=== PATIENT | female | born 1935 | race Caucasian/White ===

== ENCOUNTER 2016-08-06 17:43 | Inpatient (IN) | payer OTHER ==
[2016-08-06] MEDS ORDERED: NS 1,000 ML IV ONE (18:02)
--- NOTE | 2016-08-06 18:11 | PROVIDER DOCUMENTATION ---
HPI-Female /OB/Breast - General Chief Complaint: UTI Symptoms Stated Complaint: general weakness, recurrent UTI Time Seen by Provider: 08/06/16 17:49 Source: reports: patient Allergies/Adverse Reactions: Patient Allergies Allergy/AdvReac Type Severity Reaction Status Date / Time pregabalin [From Lyrica] Allergy Unknown Verified 08/06/16 18:58 Home Medications: Home Medication List Medication Instructions Recorded Confirmed Last Taken Type Levothyroxine [Synthroid] 100 microgm PO DAILY 12/02/15 08/06/16 08/06/16 07:00 History Insulin Glargine [Lantus] 23 unit SUBQ QHS 12/22/15 08/06/16 08/05/16 20:00 History Insulin Lispro [Humalog] 100 unit SQ DIRECTED 12/22/15 08/06/16 08/05/16 20: 00 History Omeprazole [Prilosec] 40 mg PO DAILY 12/22/15 08/06/16 08/06/16 08:00 History Hydrocodone/Acetaminophen [[place] 1 each PO BID 02/01/16 08/06/16 08/06/16 07:00 History 5-325 Tablet] Amlodipine [Norvasc] 5 mg PO DAILY #30 tablet 02/03/16 08/06/16 08/06/16 07:00 Rx Gabapentin 300 mg PO TID 08/06/16 08/06/16 08/06/16 12:00 History Lisinopril 10 mg PO DAILY 08/06/16 08/06/16 08/06/16 08:00 History Sulfamethoxazole/Trimethoprim 1 tab PO QAM 08/06/16 08/06/16 08/06/16 08:00 History [Bactrim Ds Tablet] Tamsulosin [Flomax] 0.4 mg PO QHS 08/06/16 08/06/16 08/05/16 20:00 History - History of Present Illness-Female /OB Nature of Presenting Problem: 81 Y/O F presents to ED with Female . Pt c/o of reoccurring UTI that began last week started taking Bactrim today . States UTI worsening hasn't been resolved, Pt states home care nurse stated Pt was pale and diaphoretic, with generalized pain. Pt is a hospice pt due to COPD, and also a full code Pt. During exam Pt is alert while talking but doses off during the exam. Does patient report she is ?: No Location of complaint: reports: generalized flank Radiation: reports: none Quality of Pain: reports: aching Severity in ED: reports: moderate Onset/Duration: reports: last week Timing: reports: still present, getting worse Context/Activities at Onset: reports: none Urinary Symptoms: reports: frequency Associated Symptoms: reports: diaphoresis, fever/chills. denies: diarrhea, dizziness, nausea Similar Symptoms Previously?: Yes Recently seen or treated by another doctor?: Yes Review of Systems - Adult - REVIEW OF SYSTEMS - ADULT Constitutional: reports: fever. denies: chills Eyes: reports: no symptoms reported Ears, Nose, Mouth & Throat: reports: no symptoms reported Cardiovascular: reports: no symptoms reported Respiratory: reports: no symptoms reported Gastrointestinal: reports: no symptoms reported Genitourinary: reports: frequency, frequent UTI's Musculoskeletal: reports: no symptoms reported Integumentary: reports: no symptoms reported Neurological: reports: no symptoms reported Psychiatric: reports: no symptoms reported Endocrine: reports: no symptoms reported Hematologic/Lymphatic: reports: no symptoms reported Allergic/Immunologic: reports: no symptoms reported All Other Systems: Reviewed and Negative Past History - Adult - PAST MEDICAL HISTORY-ADULT Review of Records: reports: Old Records Reviewed, Nursing Assessment Review, Medications Reviewed, Social history reviewed & non-contributory. Major Childhood Illnesses: reports: denies history Cardiovascular: reports: HTN Respiratory: reports: COPD Neurological: reports: dementia Endocrine/Immune: reports: anemia, Diabetes, thyroid disorder Other Conditions: reports: denies history - PRIOR SURGERIES/PROCEDURES Surgical/Procedure History: reports: hysterectomy - IMMUNIZATION STATUS Childhood Immunizations: See Nurse Assessment Flu Vaccine: See Nurse Assessment - FAMILY HISTORY Family History: reviewed, not pertinent - SOCIAL HISTORY Smoking: quit greater than 1 year Physical Exam-General - PHYSICAL EXAM-ADULT Initial Vital Signs Reviewed: Yes - CONSTITUTIONAL General Appearance: alert (but doses off during exqam.), no apparent distress. negative: appears well - EYES Eyes: PERRL/EOMI, pink conjunctivae, fundi clear, no AV nicking - HEAD, EARS, NOSE, MOUTH & THROAT HENMT: normocephalic/atraumatic, moist mucous membranes, normal ENT inspection, TMs normal, pharynx normal - NECK Neck: non-tender, full range of motion, supple, normal inspection - RESPIRATORY Respiratory: chest non-tender, lungs clear, normal breath sounds - CARDIOVASCULAR Cardiovascular: normal peripheral pulses, regular rate, rhythm - GASTROINTESTINAL (ABDOMEN) Abdominal Exam: normal bowel sounds, non tender, soft - LYMPHATIC Lymphatic: no adenopathy - MUSCULOSKELETAL Back Exam: normal inspection, no CVA tenderness, no vertebral tenderness Extremity: normal range of motion, non-tender - SKIN Integumentary: normal color, normal turgor, warm/dry - NEUROLOGIC Neurologic: associate vice president II-XII nml as tested, grossly normal - PSYCHIATRIC Psych/Mental Status: normal mood/affect, normal thought content, normal thought process, oriented x 3 Progress - PLAN OF CARE/RESULTS Progress/Plan/Lab Results: Laboratory Tests 08/06/16 08/06/16 08/06/16 18:31 18:31 18:31 WBC 8.88 RBC 3.41 L Hgb 10.1 L Hct 31.7 L MCV 93.0 MCH 29.6 MCHC 31.9 L RDW Std Deviation 14.0 Plt Count 242 MPV 10.6 H Immature Gran % (Auto) 0.5 Neut % (Auto) 65.5 Lymph % (Auto) 22.9 [place] % (Auto) 7.0 Eos % (Auto) 3.8 Baso % (Auto) 0.3 Immature Gran # (Auto) 0.04 Neut # (Auto) 5.82 Lymph # (Auto) 2.03 [place] # (Auto) 0.62 H Eos # (Auto) 0.34 Baso # (Auto) 0.03 Specimen Type Sample Site pH pCO2 pO2 HCO3 Base Excess Oxyhemoglobin ABG O2 Sat (Calculated) ABG O2 Saturation ABG Carboxyhemoglobin ABG Methemoglobin Vickey Test A-a O2 Difference Total Hemoglobin Lactate Blood Gas Modality FiO2 % Sodium 135 L Potassium 6.2 H* Chloride 101 Carbon Dioxide 21 L Anion Gap 13 BUN 49 H Creatinine 2.1 H Estimated GFR/1.73 m2 23 BUN/Creatinine Ratio 23 Glucose 126 H Calculated Osmolality 285 Calcium 8.8 Magnesium 1.7 Total Bilirubin 0.21 AST 21 ALT 18 Alkaline Phosphatase 66 Troponin T [id number]-[id number]-[id number] Pept Total Protein 7.2 Albumin 3.7 Globulin 3.5 Albumin/Globulin Ratio 1.1 Amylase 73 Lipase 17 Plasma Lactate 0.9 08/06/16 08/06/16 08/06/16 18:31 18:31 18:35 WBC RBC Hgb Hct MCV MCH MCHC RDW Std Deviation Plt Count MPV Immature Gran % (Auto) Neut % (Auto) Lymph % (Auto) [place]oul[place] % (Auto) Eos % (Auto) Baso % (Auto) Immature Gran # (Auto) Neut # (Auto) Lymph # (Auto) [place] # (Auto) Eos # (Auto) Baso # (Auto) Specimen Type ARTERIAL Sample Site R RADIAL pH 7.27 L pCO2 42 pO2 65 HCO3 19.2 L Base Excess -7.2 L Oxyhemoglobin 92.1 L ABG O2 Sat (Calculated) 12.5 L ABG O2 Saturation 94.9 L ABG Carboxyhemoglobin 1.20 ABG Methemoglobin 1.8 H Vickey Test YES A-a O2 Difference 32.0 Total Hemoglobin 9.6 L Lactate 0.70 Blood Gas Modality ROOM AIR FiO2 % 21.0 Sodium Potassium Chloride Carbon Dioxide Anion Gap BUN Creatinine Estimated GFR/1.73 m2 BUN/Creatinine Ratio Glucose Calculated Osmolality Calcium Magnesium Total Bilirubin AST ALT Alkaline Phosphatase Troponin T < 0.010 [id number] Pept 459 H Total Protein Albumin Globulin Albumin/Globulin Ratio Amylase Lipase Plasma Lactate Orders Category Date Time Status Saline Loc DIRECTED Care 08/06/16 18:02 Active NPO Diet 08/06/16 18:02 Active CHEST-PORTABLE [RAD] Stat Exams 08/06/16 18:02 Taken ABG [RESP] Routine Lab 08/06/16 18:35 Completed AMYLASE [CHEM] Stat Lab 08/06/16 18:31 Completed BLOOD CULTURE [BLDCUL] Stat Lab 08/06/16 18:25 Results CBC WITH ELECTRONIC DIFF [HEME] Stat Lab 08/06/16 18:31 Completed COMPREHENSIVE METABOLIC PANEL [CHEM] Stat Lab 08/06/16 18:31 Completed LACTATE, PLASMA [CHEM] Stat Lab 08/06/16 18:31 Completed LIPASE [CHEM] Stat Lab 08/06/16 18:31 Completed MAGNESIUM [CHEM] Stat Lab 08/06/16 18:31 Completed PRO B-NATRIURETIC PEPTIDE Stat Lab 08/06/16 18:31 Completed TROPONIN T Stat Lab 08/06/16 18:31 Completed URINALYSIS W/POSS RFLX CULT [URINALYSIS] Stat Lab 08/06/16 18:02 Uncollected 0.9% Sodium Chloride Inj [Ns] 1,000 ml Med 08/06/16 18:02 Active IV 250 mls/hr Calcium Gluconate 1 gm Med 08/06/16 19:38 Active 0.9% Sodium Chloride Inj [Ns] 50 ml IV NOW Dextrose 50% Syringe [D50w Syringe] Med 08/06/16 19:38 Discontinued 50 ml IV NOW ONE Insulin Human Regular [Humulin R] Med 08/06/16 19:38 Discontinued 8 unit IV NOW ONE Sodium Polystyrene [Kayexalate] Med 08/06/16 19:38 Discontinued 30 gm PO NOW ONE EKG [EKG] Stat Ther 08/06/16 19:38 Ordered Vital Signs - 24 hr 08/06/16 08/06/16 18:10 19:42 Temperature 100.2 F H Pulse Rate 70 68 Respiratory 16 18 Rate Blood Pressure 160/36 164/51 O2 Sat by Pulse 98 96 Oximetry - EKG 1 Time of EKG reading by physician:: 19:48 EKG Read and Signed by:: Benigno Barnett EKG Interpretation (*Must complete 3 of following elements*): Abnormal Rate: 67 Rhythm: NSR QRS: LVH Comments: Abnormal ECG - XRAY 1 XRAY Study: Chest XRAY Interpretation: COPD changes, Non acute infilitrates - CONSULTS/PCP/HOSPITALIST Notification #1 *Consult/PCP/Hospitalist*: Time Discussed: 19:59 Reason/Comments: Admittance Consult Disposition: Admit (Admit Accepted) - CHANGE OF SHIFT REPORT (ED Provider) Report Given and Care Transferred to:: Time of Transfer: 19:41 Items Pending: Labs, Procedure, Physician Consult/Arrival Departure - Departure Time of Disposition Order: 19:48 DIAGNOSIS: Dehydration, Hypokalemia Fever Qualifiers: Fever type: unspecified Qualified Code(s): R50.9 - Fever, unspecified Disposition: ADMITTED INPATIENT 09 Certified Medical Emergency: Emergent Condition: Stable Additional Instructions: ED Follow Up Instructions: You have been treated by a care provider in the Emergency Department. These instructions are being provided to you so you can have an understanding of how to care for yourself upon discharge. Upon discharge from the Emergency Department, you are responsible for making arrangements for follow-up care by a physician of your choice. Take all prescribed medications as directed. Return to the Emergency Department immediately for any new or worsening symptoms. You may call the Physician Referral phone number at [phone] to obtain a list of Physicians who are taking new patients. Attestation - Scribe Verification/Attestation Scribe:: Misty Matthews Acting as Scribe for:: Hansel Garcia Scribe documention review:: This chart was documented by a scribe and accurately reflects the service the provider performed and the decisions made by the provider.
[2016-08-06 18:42] LABS: ALLEN TEST YES; BE -7.2 mmoll (-3.0-3.0); BLOOD TYPE ARTERIAL; DRAW SITE R RADIAL; METHB 1.8 % (0.0-1.5); O2(CT) 12.5 mL/dL (15.0-23.0); PCO2(98.6) 42 mmHg (35-45); PO2(98.6) 65 mmHg (60-100); SAMPLE BLOOD; SAO2 94.9 % (95.0-100.0); THB 9.6 g/dL (11.5-17.4); pH(98.6) 7.27 (7.35-7.45)
[2016-08-06 18:42] LABS: MANUAL DIFF NEEDED? NO
[2016-08-06 18:43] LABS: MODALITY ROOM AIR
[2016-08-06 18:46] LABS: BASO% 0.3 % (0.0-0.8); EOS# 0.34 X1000 (0.0-0.7); EOS% 3.8 % (0.0-10.0); HEMATOCRIT 31.7 % (37.0-47.0); HEMOGLOBIN 10.1 g/dL (12.0-16.0); IMM GRAN# 0.04 X1000 (0.0-0.04); IMM GRAN% 0.5 % (0.0-0.5); LYMPH# 2.03 X1000 (1.2-3.4); LYMPH% 22.9 % (20.5-51.1); MCH 29.6 PG (27-31); MCHC 31.9 g/dL (33-37); MONO# 0.62 X1000 (0.11-0.59); MPV 10.6 FL (7.4-10.4); NEUT% 65.5 % (42.2-75.2); PLT 242 X1000 (130-400); RBC 3.41 XMIL (4.2-5.4)
[2016-08-06 19:13] LABS: ALBUMIN 3.7 g/dL (3.5-5.0); CALCIUM 8.8 mg/dL (8.8-10.2); MAGNESIUM 1.7 mg/dL (1.5-2.7); POTASSIUM 6.2 mmol/L (3.5-5.1); TOTAL BILIRUBIN 0.21 mg/dL (0.20-1.00); TOTAL PROTEIN 7.2 g/dL (6.3-8.3)
[2016-08-06] MEDS ORDERED: HUMULIN R IV ONE ×2 (19:38→23:55)
[2016-08-06] MEDS ORDERED: CALCIUM GLUCONATE 1 GM in NS 50 ML IV ONE (19:38)
[2016-08-06] MEDS ORDERED: KAYEXALATE PO ONE (19:38)
[2016-08-06] MEDS ORDERED: D50W SYRINGE IV ONE ×2 (19:38→23:55)
[2016-08-06 20:17] LABS: URINE MICRO REVIEW NEEDED? NO; URINE SOURCE CATH
[2016-08-06 20:25] LABS: BILIRUBIN URINE NEGATIVE (NEGATIVE); BLOOD URINE SMALL (NEGATIVE); COLOR ORANGE; GLUCOSE URINE NEGATIVE (NEGATIVE); LEUKOCYTES URINE LARGE (NEGATIVE); NITRITE URINE NEGATIVE (NEGATIVE); PH URINE 5.5; PROTEIN URINE 50 mg/dL (NEGATIVE); TURBIDITY URINE HAZY (CLEAR); UROBILINOGEN URINE NORMAL (NORMAL)
[2016-08-06 20:26] LABS: UR EPITHELIAL CELLS <10 /HPF (<10); URINE BACTERIA 4+ /HPF; URINE CULTURE NEEDED? YES; URINE RBC <10 /HPF (<10); URINE WBC TNTC /HPF (<10)
[2016-08-06] MEDS ORDERED: ROCEPHIN 1 GM/NS 50 ML IV ONE (20:50)
[2016-08-06 21:33] LABS: UR CREAT RANDOM 47.3 mg/dL (11-20)
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
[2016-08-06] MEDS: HUMALOG SUBQ SCH (21:50)
[2016-08-06] MEDS ORDERED: ZOFRAN IV PRN (21:50)
[2016-08-06] MEDS ORDERED: TYLENOL PO PRN (21:50)
[2016-08-06] MEDS ORDERED: SODIUM BICARBONATE 8.4% 100 MEQ in D5W 1,000 ML IV SCH (21:50)
[2016-08-06] MEDS: HEPARIN SUBQ SCH (22:15)
[2016-08-06] MEDS: LANTUS SUBQ SCH (22:37)
[2016-08-06] MEDS ORDERED: TYLENOL PR ONE (23:00)
[2016-08-06] MEDS ORDERED: TYLENOL ONE (23:02)
[2016-08-06 23:30] LABS: CALCIUM 9.2 mg/dL (8.8-10.2)
--- NOTE | 2016-08-07 05:36 | EKG Report ---
Test Performed on : 08/06/2016 7:48:52 PM Test Reason : Elevated K level Blood Pressure : / mmHG Vent. Rate : 067 BPM Atrial Rate : 067 BPM P-R Int : 164 ms QRS Dur : 106 ms QT Int : 378 ms P-R-T Axes : 062 -29 063 degrees QTc Int : 399 ms Normal sinus rhythm. Possible Left atrial enlargement Left ventricular hypertrophy Cannot rule out Septal infarct , age undetermined Abnormal ECG When compared with ECG of 01-FEB-2016 10:13, Vent. rate has increased BY 27 BPM Nonspecific T wave abnormality now evident in Lateral leads Unconfirmed Result
[2016-08-07] MEDS: HUMALOG SUBQ SCH ×4 (06:40→21:17)
[2016-08-07 07:15] LABS: MANUAL DIFF NEEDED? NO
[2016-08-07 07:22] LABS: BASO% 0.3 % (0.0-0.8); EOS# 0.21 X1000 (0.0-0.7); EOS% 3.6 % (0.0-10.0); HEMATOCRIT 28.3 % (37.0-47.0); LYMPH% 24.2 % (20.5-51.1); MCH 29.2 PG (27-31); MCHC 31.8 g/dL (33-37); MCV 91.9 FL (81-99); MONO# 0.51 X1000 (0.11-0.59); MONO% 8.8 % (1.7-9.3); MPV 10.8 FL (7.4-10.4); NEUT% 63.1 % (42.2-75.2); PLT 204 X1000 (130-400); RBC 3.08 XMIL (4.2-5.4)
[2016-08-07 07:51] LABS: ALBUMIN 3.1 g/dL (3.5-5.0); CALCIUM 8.3 mg/dL (8.8-10.2); TOTAL BILIRUBIN 0.19 mg/dL (0.20-1.00); TOTAL PROTEIN 6.2 g/dL (6.3-8.3)
--- NOTE | 2016-08-07 08:57 | Diag Imaging Result Document ---
PROCEDURE NAME: CHEST-PORTABLE - 08/06/2016 SINGLE FRONTAL RADIOGRAPH OF THE CHEST: COMPARISON: 02/01/2016. FINDINGS: There is perhaps mild chronic interstitial scarring at the lung bases that is unchanged. The lungs are grossly clear otherwise. There is no definite pleural fluid collection. Cardiac silhouette is mildly prominent but stable. Central vasculature is unremarkable. Mildly prominent heart and mild chronic interstitial thickening at the lung bases that is unchanged. IMPRESSION: No definite acute pathology. [facility]
[2016-08-07] MEDS: HEPARIN SUBQ SCH ×2 (09:56→21:17)
[2016-08-07] MEDS: NORVASC PO SCH (10:02)
[2016-08-07] MEDS: 1/2 NS 1,000 ML IV SCH (10:03)
[2016-08-07] MEDS ORDERED: VANCOMYCIN IV PER PHARMACY MISC SCH (13:30)
[2016-08-07] MEDS ORDERED: VANCOMYCIN 1,400 MG in NS 250 ML IV ONE (15:00)
[2016-08-07] MEDS: NORCO-10 PO PRN (15:40)
--- NOTE | 2016-08-07 17:19 | PROGRESS NOTE ---
DATE: 08/07/2016 SUBJECTIVE: The patient is more awake and alert today. Her renal function is a lot better. OBJECTIVE: Vital Signs: Temperature 99, blood pressure 146/67, heart rate 73, respirations 18, O2 saturations 95% on 2 L nasal cannula. General: This is an elderly female, lying in bed, in no acute distress. Head: Normocephalic, atraumatic. Heart: S1, S2. Normal. Regular rate and rhythm. Lungs: Clear to auscultation bilaterally. No wheezing. No rales. No rhonchi. Abdomen: Positive bowel sounds. Soft, nontender, nondistended. Extremities: No edema. No cyanosis. No calf tenderness. Neurologic: The patient is alert and oriented to person. LABS: White blood cell count 5.7, hemoglobin 9, hematocrit 28, platelets 204. Sodium 141, potassium 5.3, chloride 105, CO2 of 24, BUN 42, creatinine 1.6, glucose 110, calcium 8.3. AST 31, ALT 22, alkaline phosphatase 62. Albumin 3.1. ASSESSMENT AND PLAN: 1. Metabolic encephalopathy secondary to urinary tract infection. We will continue to treat the underlying infection. The patient's mental status appears to be improving. 2. Urinary tract infection. The urine culture is currently pending. Continue on IV antibiotic therapy. 3. Acute kidney injury. The patient did take Bactrim for a urinary tract infection as outpatient. This may have contributed to the patient's renal failure. Continue with IV fluid hydration. 4. Hypothyroidism. Continue on Synthroid. 5. Diabetes mellitus type 2. We will continue on sliding scale insulin. 6. Diabetic neuropathy. Will restart the patient's gabapentin. 7. Deep vein thrombosis prophylaxis. Will start the patient on Lovenox.
[2016-08-07] MEDS ORDERED: ROCEPHIN 1 GM/NS 50 ML IV SCH (21:00)
[2016-08-07] MEDS: LANTUS SUBQ SCH (21:16)
[2016-08-07] MEDS: ROCEPHIN 1 GM/NS 50 ML IV SCH (21:16)
[2016-08-08] MEDS: 1/2 NS 1,000 ML IV SCH ×2 (04:44→21:35)
[2016-08-08] MEDS: NORCO-10 PO PRN ×3 (05:04→20:40)
[2016-08-08 05:30] LABS: HEMATOCRIT 29.2 % (37.0-47.0); HEMOGLOBIN 9.4 g/dL (12.0-16.0); MCH 29.8 PG (27-31); MCHC 32.2 g/dL (33-37); MCV 92.7 FL (81-99); MPV 10.9 FL (7.4-10.4); RBC 3.15 XMIL (4.2-5.4)
[2016-08-08 05:41] LABS: CALCIUM 8.6 mg/dL (8.8-10.2); POTASSIUM 4.3 mmol/L (3.5-5.1)
[2016-08-08] MEDS: HUMALOG SUBQ SCH ×2 (06:09→11:36)
[2016-08-08] MEDS: NORVASC PO SCH (09:50)
[2016-08-08] MEDS: NEUTRA-PHOS PO SCH ×4 (09:50→20:31)
[2016-08-08] MEDS: HEPARIN SUBQ SCH ×2 (09:50→20:31)
--- NOTE | 2016-08-08 16:05 | PROGRESS NOTE ---
DATE: 08/08/2016 SUBJECTIVE: The patient states that she feels a whole lot like her normal self. She denies any acute events overnight. OBJECTIVE: Vital Signs: Temperature 98 degrees, blood pressure 158/44, heart rate 59, respirations 16, O2 saturations 93% on room air. General: This is an elderly female, lying in bed, in no acute distress. Head: Normocephalic atraumatic. Heart: S1, S2. Normal. Regular rate and rhythm. Lungs: Clear to auscultation bilaterally. No wheezes, no rales. No rhonchi. Abdomen: Positive bowel sounds. Soft, nontender, nondistended. Extremities: No edema. No cyanosis. No calf tenderness. LABS: White blood cell count 5.8, hemoglobin 9.4, hematocrit 29, platelets 226,000. Sodium 141, potassium 4.3, chloride 104, CO2 25, BUN 30, creatinine 1.3, glucose 65, phosphorus 2.4. ASSESSMENT AND PLAN: 1. Metabolic encephalopathy. Resolved. 2. Acute kidney injury. Slowly improving. Continue on IV fluid hydration. 3. Hypophosphatemia. The patient is currently on Neutra-Phos. 4. Urinary tract infection. The patient's urine culture is growing gram-negative rods. Continue on IV ceftriaxone. We will follow up on the culture results. 5. Diabetes mellitus type 2. Continue on Lantus plus sliding scale insulin. 6. Deep vein thrombosis prophylaxis. Continue on heparin. 7. Continue with physical therapy.
[2016-08-08] MEDS: ROCEPHIN 1 GM/NS 50 ML IV SCH (20:31)
[2016-08-08] MEDS: LANTUS SUBQ SCH (21:32)
[2016-08-09] MEDS: 1/2 NS 1,000 ML IV SCH (02:21)
[2016-08-09] MEDS ORDERED: APRESOLINE IV ONE (04:40)
[2016-08-09] MEDS: NORVASC PO SCH (06:53)
[2016-08-09 07:27] LABS: MANUAL DIFF NEEDED? NO
[2016-08-09 07:33] LABS: BASO% 0.6 % (0.0-0.8); EOS# 0.31 X1000 (0.0-0.7); EOS% 5.8 % (0.0-10.0); HEMATOCRIT 30.2 % (37.0-47.0); HEMOGLOBIN 10.1 g/dL (12.0-16.0); IMM GRAN# 0.06 X1000 (0.0-0.04); IMM GRAN% 1.1 % (0.0-0.5); LYMPH# 1.04 X1000 (1.2-3.4); LYMPH% 19.4 % (20.5-51.1); MCH 30.1 PG (27-31); MCHC 33.4 g/dL (33-37); MCV 89.9 FL (81-99); MONO% 7.4 % (1.7-9.3); MPV 10.5 FL (7.4-10.4); NEUT% 65.7 % (42.2-75.2); PLT 217 X1000 (130-400); RBC 3.36 XMIL (4.2-5.4)
[2016-08-09 08:10] LABS: CALCIUM 8.8 mg/dL (8.8-10.2); POTASSIUM 4.2 mmol/L (3.5-5.1)
[2016-08-09] MEDS: NEURONTIN PO SCH (09:00)
[2016-08-09] MEDS: NEUTRA-PHOS PO SCH (09:00)
[2016-08-09] MEDS: HEPARIN SUBQ SCH ×2 (09:00→20:14)
[2016-08-09] MEDS ORDERED: APRESOLINE PO ONE (09:47)
[2016-08-09] MEDS ORDERED: SODIUM CHLORIDE 0.9% 10 ML ONE (10:03)
--- NOTE | 2016-08-09 11:11 | Diag Imaging Result Document ---
PROCEDURE NAME: ABDOMEN FLAT/UPRIGHT - 08/09/2016 FLAT AND UPRIGHT RADIOGRAPH OF THE ABDOMEN: COMPARISON: None available. FINDINGS: There are nonspecific colonic gas patterns. There is no obstructive pattern. There is no evidence of large-volume free abdominal gas. There is no definite organomegaly by plain radiograph. Several phleboliths project over the pelvis on the left. IMPRESSION: Nonspecific abdomen.
[2016-08-09] MEDS: APRESOLINE PO SCH ×2 (12:32→20:14)
[2016-08-09] MEDS ORDERED: VANCOMYCIN 1 GM/NS 250 ML IV SCH (15:00)
[2016-08-09] MEDS: NORCO-10 PO PRN ×2 (15:15→20:14)
--- NOTE | 2016-08-09 18:52 | PROGRESS NOTE ---
DATE: 08/09/2016 SUBJECTIVE: The patient complains of nausea and states that she did not feel like eating. Also her blood pressure was noted to be quite elevated this morning. OBJECTIVE: Vital Signs: Temperature 97.6 degrees, blood pressure 199/46, heart rate 77, respirations 16, O2 saturations 98% on room air. General: This is an elderly female, lying in bed, in no acute distress. Head: Normocephalic atraumatic. Heart: S1, S2. Normal. Regular rate and rhythm. Lungs: Clear to auscultation bilaterally. No wheezes, no rales. No rhonchi. Abdomen: Positive bowel sounds. Soft, nontender, nondistended. Extremities: No edema. No cyanosis. No calf tenderness. Neurological: Patient is awake and alert. LABS: White blood cell count 5.3, hemoglobin 10, hematocrit 30, platelets 217,000. Sodium 139, potassium 4.2, chloride 101, CO2 26, BUN 20, creatinine 1, glucose 121. ASSESSMENT AND PLAN: 1. Acute kidney injury. Resolved. 2. Urinary tract infection secondary to E. coli. It is also a indicating that the UTI is ESBL. We will switch the patient to imipenem. 3. Diabetes mellitus type 2. Continue on Lantus plus sliding scale insulin. 4. Deep vein thrombosis prophylaxis. Continue on heparin. 5. Continue with physical therapy.
[2016-08-09] MEDS: LANTUS SUBQ SCH (20:15)
[2016-08-09] MEDS: PRIMAXIN 500 MG in NS 100 ML IV SCH (21:54)
[2016-08-10] MEDS: PRIMAXIN 500 MG in NS 100 ML IV SCH (03:26)
[2016-08-10] MEDS: APRESOLINE PO SCH (03:27)
[2016-08-10] MEDS: NORCO-10 PO PRN (03:27)
[2016-08-10 07:12] LABS: MANUAL DIFF NEEDED? NO
[2016-08-10 07:14] LABS: EOS# 0.36 X1000 (0.0-0.7); EOS% 8.7 % (0.0-10.0); HEMATOCRIT 29.7 % (37.0-47.0); HEMOGLOBIN 9.5 g/dL (12.0-16.0); LYMPH# 1.04 X1000 (1.2-3.4); LYMPH% 25.2 % (20.5-51.1); MCH 29.5 PG (27-31); MCV 92.2 FL (81-99); MONO# 0.47 X1000 (0.11-0.59); MONO% 11.4 % (1.7-9.3); MPV 10.4 FL (7.4-10.4); NEUT% 53.7 % (42.2-75.2); PLT 227 X1000 (130-400); RBC 3.22 XMIL (4.2-5.4)
[2016-08-10 07:34] LABS: CALCIUM 9.1 mg/dL (8.8-10.2); POTASSIUM 4.4 mmol/L (3.5-5.1)
[2016-08-10 08:03] VITALS: BP 158/52
[2016-08-10] MEDS: NEURONTIN PO SCH (10:03)
[2016-08-10] MEDS: HEPARIN SUBQ SCH (10:03)
[2016-08-10] MEDS: NORVASC PO SCH (10:03)
[2016-08-10] MEDS ORDERED: NS 1,000 ML IV SCH (10:15)
--- NOTE | 2016-08-19 07:33 | DISCHARGE SUMMARY ---
ADMISSION DATE: 08/06/2016 DISCHARGE DATE: 08/10/2016 FINAL DISCHARGE DIAGNOSES: 1. Metabolic encephalopathy. 2. Urinary tract infection secondary to Escherichia coli. 3. Acute kidney injury. 4. Hypophosphatemia. 5. Diabetes mellitus type 2. 6. Hypertension. HOSPITAL COURSE: Ms. Chaudhry is an 81-year-old female, with a history of diabetes and hypertension, who was brought to the ER with confusion. Upon arrival, the patient was noted to have a urinary tract infection and was noted to have a creatinine of 2.1 with a potassium of 6. The patient was admitted to the hospitalist service. Blood cultures, as well as urine culture were obtained and the patient was started on IV antibiotic therapy, as well as IV fluids. The a urine culture ultimately grew out Escherichia coli. Over the course of the hospitalization, the patient's renal function improved. The hyperkalemia also resolved. The patient was seen by physical therapy and ultimately cleared for discharge home on 08/10/2016. DISCHARGE MEDICATIONS: 1. Keflex 500 mg p.o. twice a day x7 days. 2. Hydralazine 25 mg p.o. every 8 hours. 3. Lactobacillus 1 tablet oral daily. 4. Norvasc 5 mg p.o. daily. 5. Gabapentin 300 mg p.o. 3 times a day. 6. [place] 5/325, one tablet oral twice a day. 7. Lantus 22 units subcutaneous at bedtime. 8. Kenalog sliding scale as directed. 9. Synthroid 100 mcg oral daily. 10. Prilosec 40 mg p.o. daily. 11. Flomax 0.4 mg p.o. at bedtime. DISCHARGE DIET: 1800 ADA diet. ACTIVITY: As tolerated. FOLLOWUP INSTRUCTIONS: The patient will need to follow up with her primary care physician in 1 week.
== END 2016-08-10 13:20 | disposition home health service (06) | DRG 682 ==
LOC: EDBD → ED 17:43 → EDIPHOLD 22:16 → 3S 08-07 09:50 → 3N 08-08 12:17
PROVIDERS: ATTEND Internal Medicine
DX: N17.9 Acute kidney failure, unspecified (principal); G93.41 Metabolic encephalopathy; E11.40 Type 2 diabetes mellitus with diabetic neuropathy, unspecified; F03.90 Unspecified dementia, unspecified severity, without behavioral disturbance, psychotic disturbance, mood disturbance, and anxiety; E83.39 Other disorders of phosphorus metabolism; N39.0 Urinary tract infection, site not specified; J44.9 Chronic obstructive pulmonary disease, unspecified; E86.0 Dehydration; I10 Essential (primary) hypertension; D64.9 Anemia, unspecified; E87.6 Hypokalemia; B96.20 Unspecified Escherichia coli [E. coli] as the cause of diseases classified elsewhere; E03.9 Hypothyroidism, unspecified; T37.0X5A Adverse effect of sulfonamides, initial encounter; Z87.440 Personal history of urinary (tract) infections; Z87.891 Personal history of nicotine dependence; Z79.899 Other long term (current) drug therapy; Z79.4 Long term (current) use of insulin; Z80.1 Family history of malignant neoplasm of trachea, bronchus and lung; Z80.0 Family history of malignant neoplasm of digestive organs; Z83.3 Family history of diabetes mellitus; Z89.422 Acquired absence of other left toe(s); Z89.202 Acquired absence of left upper limb, unspecified level; E87.5 Hyperkalemia
CPT/HCPCS: 71010; 74020; 80048; 80053; 81001; 82150; 82570; 82805; 82948; 83605; 83690; 83735; 83880; 84100; 84132; 84300; 84484; 85025; 85027; 87040; 87077; 87088; 87186; 87205; 93005; 96365; 96366; 96367; 96375; 96376; J0360; J0610; J0696; J0743; J1644; J1815; J2405; J3370; J7030; J7050; J7070; P9612; 97530-GP